=== PATIENT | female | born 1965 | race Caucasian/White ===

== ENCOUNTER 2018-08-02 20:35 | Emergency (ER) | payer BC, SELFPAY ==
[2018-08-02 20:36] VITALS: BP 154/83; PULSE 92; RESP 18; TEMP 36.7; O2SAT 94; BMI 43.0
--- NOTE | 2018-08-02 20:50 | RAD_ITS ---
STUDY: X-RAY - LEFT ELBOW REASON FOR EXAM: Female, 52 years old. Dog bite TECHNIQUE: 3 view(s) of the elbow. COMPARISON: None. FINDINGS: Normal visualized humerus, radius and ulna. Normal radiocapitellar and ulnotrochlear articulations. There is gas within the soft tissues with swelling of the lateral collateral anterior elbow and proximal forearm persistent with dogbite. No radiopaque foreign body within the soft tissues or evidence for acute osteomyelitis RAD/Elbow min 3 Views IMPRESSION: Soft tissue swelling and gas consistent with recent dogbite. No evidence for acute fracture or osteomyelitis Electronically Signed: Billy Knox MD at 21:12 EDT , Service support ,
--- NOTE | 2018-08-02 20:50 | ED.DCSUM_ITS ---
History of Present Illness Chief Complaint: Laceration Informant: Patient Onset: Today Narrative: Dog bite left arm 20 minutes prior to arrival. Reports that her friend's house, medium size dog. Reports dog's shots are up-to-date. Patient's tetanus 2 years ago. No anticoagulation medicines. No history of similar. History of hiatal hernia repairs in the past. Bleeding controlled. Pain with palpation. Pain with elbow movement. No paresthesias. Prior similar symptoms: No Past Medical History - Allergies and Home Meds Allergies/Adverse Reactions: Allergies No Known Allergies Allergy (Verified 08/02/18 20:36) Primary Care Physician: Cl Oates,Out of [Primary Care Provider] - Smoking Status: Never smoker Review of Systems All systems negative except as indicated Musculoskeletal: Reports: Arthralgias Skin: Reports: Wounds Neurological: Denies: Parasthesia Physical Exam Vital Signs/Narrative: Vital Signs Temp Pulse Resp BP Pulse Ox 08/02/18 20:36 98.1 F 92 18 154/83 H 94 Inital Vital Signs reviewed: Yes General: Well nourished, Well developed, No Acute Distress Head: Normocephalic, Atraumatic Eyes: Perrl, EOMI ENT: Moist mucous membranes, No rhinorrhea Neck: Supple, Nontender Cardiovascular: Regular rate, Regular rhythm, No murmurs Respiratory: No distress, CTA bilaterally, Chest nontender Abdomen: Soft, Nontender, Nondistended, Normal bowel sounds Back: Nontender, Normal Inspection Extremities: No edema, - - Left upper extremity: No deformities. Left lateral elbow notes 2 cm laceration superiorly with subcutaneous extrusion, no bleeding. 3 puncture wounds at the forearm, ecchymosis noted. No active bleeding. Neurovascular intact distally. Skin: Normal color, No rash Neurological: Alert, Oriented x3, Cranial nerves II-XII grossly intact, Normal Strength, Normal Sensation Psychological: Normal affect, Normal Mood Diagnostic/Tx/Re-eval - Medical Decision Making Patient dog bite left elbow. Augmentin oxycodone given. X-ray negative. Due to protrusion of fatty tissues of laceration, 2 loose sutures were placed. Signs and symptoms discussed with patient for infection. Continue Augmentin. Short prescription for pain control. Follow-up as an outpatient. Procedures - Lacerations No standard instances Length: 24 in Depth: Sub Q Shape: Linear Prep: Sterile Conditions Laceration repair: Lidocaine Irrigated (ml): 999 Number of Sutures/Martita: 2 - Sutures Suture Information: Ethilon, 4-0 ED Disposition - Plan for ED Patient: Disposition: Home or Assisted Living Diagnosis: Dog bite of left elbow, Laceration of left elbow without complication Instructions: ED Laceration All, ED Bite Dog Prescriptions: Oxycodone HCl/Acetaminophen [Percocet 5/325] 1 tablet PO Q6H PRN PRN 3 Days #10 tablet PRN Reason: Pain Amoxicillin/Potassium Clav [Augmentin 875-125 Tablet] 1 each PO BID #13 tablet Referrals: [facility] Doctor,Out of [Primary Care Provider] - 3-5 Days
[2018-08-02] MEDS: oxyCODONE 5 MG Tablet PO (20:56)
[2018-08-02] MEDS: Amox/Clavulanate 875 MG Tablet PO (20:56)
[2018-08-02 21:40] VITALS: BP 148/90; PULSE 87; RESP 16; O2SAT 96
== END 2018-08-02 21:41 | disposition home or self-care (01) ==
PROVIDERS: Emergency Provider Emergency Medicine
DX: S51.012A Laceration without foreign body of left elbow, initial encounter (principal); W54.0XXA Bitten by dog, initial encounter; Y93.9 Activity, unspecified; Y92.89 Other specified places as the place of occurrence of the external cause
CPT/HCPCS: 12001; 73080; 99284